=== PATIENT | male | born 1980 | race Caucasian/White ===

== ENCOUNTER → 2016-11-30 | Outpatient (CLI) | payer MEDICARE | LOC: LAB 10:45 | DX: F33.0 Major depressive disorder, recurrent, mild (principal) | CPT/HCPCS: 36415; 80156 ==

== ENCOUNTER → 2016-12-17 | Outpatient (CLI) | payer MEDICARE | LOC: LAB 09:16 | DX: F33.1 Major depressive disorder, recurrent, moderate (principal) | CPT/HCPCS: 36415; 80156 ==